=== PATIENT | male | born 1940 | race Caucasian/White ===

== ENCOUNTER 2018-08-05 11:58 | Outpatient (CLI) | payer OTHER ==
[~2018-08-05 11:58] MED LIST: ALLOPURINOL300 MG
== END 2018-08-05 12:01 | disposition home or self-care (01) ==
LOC: RAD 11:58
DX: I51.7 Cardiomegaly (principal); R01.2 Other cardiac sounds; Z95.0 Presence of cardiac pacemaker

== ENCOUNTER 2018-08-07 10:18 | Outpatient (CLI) | payer OTHER | END 2018-08-07 10:20 | disposition home or self-care (01) | LOC: NUCLEAR 10:18 | DX: I51.7 Cardiomegaly (principal); Z95.0 Presence of cardiac pacemaker; R01.1 Cardiac murmur, unspecified ==

== ENCOUNTER 2018-10-17 10:32 | Outpatient (CLI) | payer OTHER | END 2018-10-17 10:35 | disposition home or self-care (01) | LOC: SONOGRAMA 10:32 | DX: N18.9 Chronic kidney disease, unspecified (principal) ==

== ENCOUNTER 2018-12-15 22:05 | Inpatient (IN) | payer OTHER ==
[~2018-12-15] VITALS: Ht 188 cm; Wt 102.1 kg
[2018-12-15] MEDS ORDERED: LISINOPRIL10 MG (22:59)
[2018-12-15] MEDS ORDERED: ASPIR 8181 MG (23:00)
[2018-12-15] MEDS ORDERED: CARVEDILOL 6.25 MG (23:01)
[2018-12-16] MEDS ORDERED: CARVEDILOL6.25 MG (15:49)
[2018-12-19] MEDS ORDERED: LEVAQUIN750 MG PO (12:47)
== END 2018-12-19 14:34 | disposition home or self-care (01) | DRG 193 ==
LOC: ER 22:05 → EDBD 22:09 → ER 22:09 → SEC-K 12-16 07:17 → MEDJ 12-16 07:17 → EDBD 12-19 14:34
PROVIDERS: ADMIT Student in an Organized Health Care Education/Training Program
PROC: 3E0F7GC Introduction of Other Therapeutic Substance into Respiratory Tract, Via Natural or Artificial Opening (ICD-10-PCS; principal; 2018-12-16)
PROC: BB24ZZZ Computerized Tomography (CT Scan) of Bilateral Lungs (ICD-10-PCS; 2018-12-16)
PROC: BW28ZZZ Computerized Tomography (CT Scan) of Head (ICD-10-PCS; 2018-12-16)
DX: J16.8 Pneumonia due to other specified infectious organisms (principal); A41.89 Other specified sepsis; F02.80 Dementia in other diseases classified elsewhere, unspecified severity, without behavioral disturbance, psychotic disturbance, mood disturbance, and anxiety

== ENCOUNTER 2018-12-28 10:58 | Outpatient (CLI) | payer OTHER ==
[~2018-12-28 10:58] MED LIST changes: +ASPIR 8181 MG; +CARVEDILOL 6.25 MG; +CARVEDILOL6.25 MG; +LEVAQUIN750 MG PO; +LISINOPRIL10 MG
== END 2018-12-28 11:04 | disposition home or self-care (01) ==
LOC: RAD 10:58 → EDBD 10:58 → RAD 11:04
DX: R05 Cough (principal); R06.09 Other forms of dyspnea

== ENCOUNTER 2019-01-30 10:36 | Outpatient (CLI) | payer OTHER | END 2019-01-30 10:43 | disposition home or self-care (01) | LOC: NUCLEAR 10:36 | DX: G31.84 Mild cognitive impairment of uncertain or unknown etiology (principal) | CPT/HCPCS: 78607; A9557 ==

== ENCOUNTER 2019-03-25 13:52 | Outpatient (CLI) | payer OTHER | END 2019-03-25 14:04 | disposition home or self-care (01) | LOC: RAD 13:52 | DX: M46.47 Discitis, unspecified, lumbosacral region (principal); J44.9 Chronic obstructive pulmonary disease, unspecified; M12.89 Other specific arthropathies, not elsewhere classified, multiple sites ==

== ENCOUNTER 2019-04-01 11:51 | Outpatient (CLI) | payer OTHER | END 2019-04-01 12:03 | disposition home or self-care (01) | LOC: TOM 11:51 | DX: M47.25 Other spondylosis with radiculopathy, thoracolumbar region (principal) ==

== ENCOUNTER 2019-04-03 10:33 | Outpatient (CLI) | payer OTHER | END 2019-04-03 10:37 | disposition home or self-care (01) | LOC: RAD 10:33 | DX: J43.2 Centrilobular emphysema (principal); R06.02 Shortness of breath ==

== ENCOUNTER 2020-02-27 07:46 | Outpatient (CLI) | payer OTHER | END 2020-02-27 08:02 | disposition home or self-care (01) | LOC: NUCLEAR 07:46 | PROVIDERS: ATTEND Internal Medicine | DX: I24.8 Other forms of acute ischemic heart disease (principal); I65.29 Occlusion and stenosis of unspecified carotid artery | CPT/HCPCS: 78452; 93017; 93880; A9500; J0153 ==

== ENCOUNTER 2021-02-14 12:37 | Emergency (ER) | payer OTHER ==
[~2021-02-14] VITALS: Ht 188 cm; Wt 102.1 kg
[2021-02-14] MEDS ORDERED: MEMANTINE HCL E28 MG PO (13:05)
[2021-02-14] MEDS ORDERED: ELIQUIS5 MG PO (13:06)
[2021-02-14] MEDS ORDERED: LASIX20 MG PO (13:06)
[2021-02-14] MEDS ORDERED: LEXAPRO20 MG PO (13:06)
== END 2021-02-14 17:03 | disposition home or self-care (01) ==
LOC: ER 12:37
DX: S93.492A Sprain of other ligament of left ankle, initial encounter (principal); M79.672 Pain in left foot; W01.198A Fall on same level from slipping, tripping and stumbling with subsequent striking against other object, initial encounter; Y93.89 Activity, other specified; Y92.018 Other place in single-family (private) house as the place of occurrence of the external cause; Y99.8 Other external cause status

== ENCOUNTER 2021-08-30 07:50 | Outpatient (CLI) | payer OTHER ==
[~2021-08-30 07:50] MED LIST changes: +ELIQUIS5 MG PO; +LASIX20 MG PO; +LEXAPRO20 MG PO; +MEMANTINE HCL E28 MG PO
== END 2021-08-30 07:54 | disposition home or self-care (01) ==
LOC: NUCLEAR 07:50
PROVIDERS: ATTEND Internal Medicine
DX: I25.9 Chronic ischemic heart disease, unspecified (principal)
CPT/HCPCS: 78452; 93017; A9500; J0153

== ENCOUNTER 2022-04-23 13:34 | Emergency (ER) | payer OTHER ==
[~2022-04-23] VITALS: Ht 188 cm; Wt 102.1 kg
== END 2022-04-23 19:00 | disposition home or self-care (01) ==
LOC: ER 13:34
DX: E86.0 Dehydration (principal); R11.10 Vomiting, unspecified; R42 Dizziness and giddiness; G30.8 Other Alzheimer's disease; F02.80 Dementia in other diseases classified elsewhere, unspecified severity, without behavioral disturbance, psychotic disturbance, mood disturbance, and anxiety; I10 Essential (primary) hypertension; M10.9 Gout, unspecified; Z95.0 Presence of cardiac pacemaker; Z20.822 Contact with and (suspected) exposure to COVID-19